=== PATIENT | male | born 1965 | race Caucasian/White ===

== ENCOUNTER 2018-09-03 12:00 | Emergency (ER) | payer OTHER ==
[~2018-09-03] VITALS: Ht 172.7 cm; Wt 73.9 kg
[2018-09-03] MEDS ORDERED: VITAMIN AND MI1 EACH PO (12:32)
[2018-09-03] MEDS ORDERED: B COMPLEX1 EACH PO (12:33)
[2018-09-03] MEDS ORDERED: VITAMIN D-32000 UNIT PO (12:33)
== END 2018-09-03 14:47 | disposition home or self-care (01) ==
LOC: ER 12:00
DX: S90.32XA Contusion of left foot, initial encounter (principal); W22.8XXA Striking against or struck by other objects, initial encounter; Y93.89 Activity, other specified; Y92.89 Other specified places as the place of occurrence of the external cause; Y99.8 Other external cause status